=== PATIENT | female | born 1965 | race Two or more races ===

== ENCOUNTER 2019-04-03 19:40 | Emergency (ER) | payer MEDICAID, MEDICARE, OTHER ==
[~2019-04-03] VITALS: Ht 154.9 cm; Wt 48.1 kg
[~2019-04-03 19:40] MED LIST: AMBIEN10 MG ORAL; CLONAZEPAM1 MG PO; CLONAZEPAM2 M1 PO; CYMBALTA30 MG ORAL; FUROSEMIDE20 M1 ORAL; KLONOPIN1 MG ORAL; LITHIUM CARBON300 MG ORAL; MULTIVITAMINS1 EAC2 ORAL; NORCO 10/3251 EA ORAL; PERCOCET 10-321 EACH ORAL; REMERON30 MG ORAL; RISPERDAL2 MG ORAL; TEMAZEPAM30 MG ORAL; VITAMIN C500 M1 ORAL; WELLBUTRIN100 MG ORAL
[2019-04-03] MEDS ORDERED: LYRICA75 M1 ORAL (19:48)
[2019-04-03] MEDS ORDERED: Hydromorphone 0.5mg/0.5ml inj IVP ONE (20:00)
--- NOTE | 2019-04-03 20:03 | Emergency Room Report ---
History of Present Illness General Chief Complaint: Abdominal Pain Source: Patient Present Illness HPI The patient presents via ambulation for left upper quadrant pain. She has pain at the site where the J-tube was removed. She was seen at [facility] March 30 and a CAT scan was done. They initially said they were going to perform surgery but then they change their minds. They did not treat her with outpatient analgesia. She has been nauseated and vomiting. She has been able to move her bowels without diarrhea but has constipation. She denies passing any blood per rectum, hematochezia, melena or blood mixed in the stool. She denies any dysuria. She states the pain is severe at this time. She rates the pain 10/10 sharp and more in the area where the J-tube was removed. Nonradiating but constant. She is somewhat depressed about the lack of pain control. She denies suicidal or homicidal ideation. Morphine pump No fevers, chills, chest pain, palpitations, shortness of breath, visual changes , headache. Allergies: Coded Allergies: FISH PRODUCT DERIVATIVES (Verified Allergy, Unknown, 12/11/11) IBUPROFEN (Verified Adverse Reaction, Mild, GI BLEED, 11/21/11) Patient History Past Medical History: see triage record Past Surgical History: other - J-tube post removal, gastric bypass Social History: Reports: smoking Social History Narrative From home Reviewed Nursing Documentation: PMH: Agreed; PSxH: Agreed Nursing Documentation-PMH Past Medical History: No History, Except For Hx Cardiac Problems: No Hx Asthma: Yes - due to allergy. Hx Cancer: No Hx Gastrointestinal Problems: Yes - UMBILICAL HERNIA Hx Neurological Problems: No Hx Cerebrovascular Accident: Yes - 2011 Review of Systems All Other Systems: negative except mentioned in HPI Physical Exam Vital Signs Date Time Temp Pulse Resp B/P (MAP) Pulse Ox O2 Delivery O2 Flow Rate FiO2 04/03/19 19:42 98.2 63 16 102/64 (77) 97 Room Air Sp02 EP Interpretation: reviewed, normal General Appearance: no apparent distress, alert, GCS 15, thin, Chronically Ill Head: normocephalic Eyes: bilateral eye normal inspection, bilateral eye PERRL, bilateral eye EOMI ENT: moist mucus membranes Neck: supple Respiratory: lungs clear, normal breath sounds Cardiovascular #1: regular rate, rhythm Cardiovascular #2: 2+ radial (R) Gastrointestinal: normal inspection, normal bowel sounds, no mass, non- distended, no guarding, no rebound, tenderness - J-tube site Genitourinary: no CVA tenderness Musculoskeletal: back normal, gait/station normal, normal range of motion Neurologic: alert, oriented x3, grossly normal Psychiatric: depressed affect Skin: other - J-tube site without induration or erythema. No drainage Medical Decision Making Diagnostic Impression: Primary Impression: Abdominal pain Qualified Codes: R10.12 - Left upper quadrant pain Additional Impressions: Constipation Qualified Codes: K59.00 - Constipation, unspecified Opiate dependence Qualified Codes: F11.288 - Opioid dependence with other opioid-induced disorder History of jejunostomy tube placement ER Course Patient presents with abdominal pain at the J-tube site. Differential includes abdominal wall infection, pain seeking behavior, electrolyte imbalance, diverticulitis, dehydration, gastroenteritis, pancreatitis amongst others. Evaluation will be with EKG, chest x-ray, abdominal film and labs. The patient will be ordered IV hydration and analgesia. White count normal. CMP unremarkable. Abdominal film with multiple surgical clips and morphine pump. Chest x-ray unremarkable. Patient improved with treatment. Lido Derm patch applied. She already has significant analgesics at home. It was stressed that she needs to follow-up with her gastrointestinal specialist or private doctor. She has an appointment tomorrow with her GI specialist. Pain is improved. She requests more analgesic. Percocet is given p.o. Patient stable for outpatient observation and treatment. Laboratory Tests Test 04/03/19 20:25 04/03/19 20:35 White Blood Count 6.6 K/UL (4.8-10.8) Red Blood Count 3.53 M/UL (4.20-5.40) L Hemoglobin 10.6 G/DL (12.0-16.0) L Hematocrit 32.9 % (37.0-47.0) L Mean Corpuscular Volume 93 FL (80-99) Mean Corpuscular Hemoglobin 30.0 PG (27.0-31.0) Mean Corpuscular Hemoglobin Concent 32.1 G/DL (32.0-36.0) Red Cell Distribution Width 13.4 % (11.6-14.8) Platelet Count 219 K/UL (150-450) Mean Platelet Volume 7.7 FL (6.5-10.1) Neutrophils (%) (Auto) % (45.0-75.0) Lymphocytes (%) (Auto) % (20.0-45.0) Monocytes (%) (Auto) % (1.0-10.0) Eosinophils (%) (Auto) % (0.0-3.0) Basophils (%) (Auto) % (0.0-2.0) Differential Total Cells Counted 100 Neutrophils % (Manual) 27 % (45-75) L Lymphocytes % (Manual) 61 % (20-45) H Monocytes % (Manual) 8 % (1-10) Eosinophils % (Manual) 4 % (0-3) H Basophils % (Manual) 0 % (0-2) Band Neutrophils 0 % (0-8) Platelet Estimate Adequate Platelet Morphology Normal Red Blood Cell Morphology Normal Prothrombin Time 10.1 SEC (9.30-11.50) Prothrombin Time INR 0.9 (0.9-1.1) PTT 29 SEC (23-33) Sodium Level 141 MMOL/L (136-145) Potassium Level 3.8 MMOL/L (3.5-5.1) Chloride Level 108 MMOL/L (98-107) H Carbon Dioxide Level 28 MMOL/L (21-32) Anion Gap 5 mmol/L (5-15) Blood Urea Nitrogen 16 mg/dL (7-18) Creatinine 1.0 MG/DL (0.55-1.30) Estimate Glomerular Filtration Rate 58.0 mL/min (>60) Glucose Level 97 MG/DL (74-106) Calcium Level 8.6 MG/DL (8.5-10.1) Total Bilirubin 0.2 MG/DL (0.2-1.0) Aspartate Amino Transferase (AST) 19 U/L (15-37) Alanine Aminotransferase (ALT) 12 U/L (12-78) Alkaline Phosphatase 87 U/L (46-116) Troponin I 0.005 ng/mL (0.000-0.056) Total Protein 5.4 G/DL (6.4-8.2) L Albumin 2.3 G/DL (3.4-5.0) L Globulin 3.1 g/dL Albumin/Globulin Ratio 0.7 (1.0-2.7) L Lipase 86 U/L (73-393) Urine Color Yellow Urine Appearance Clear Urine pH 5 (4.5-8.0) Urine Specific [place] 1.020 (1.005-1.035) Urine Protein Negative (NEGATIVE) Urine Glucose (UA) Negative (NEGATIVE) Urine Ketones Negative (NEGATIVE) Urine Blood Negative (NEGATIVE) Urine Nitrite Negative (NEGATIVE) Urine Bilirubin Negative (NEGATIVE) Urine Urobilinogen Normal MG/DL (0.0-1.0) Urine Leukocyte Esterase 1+ (NEGATIVE) H Urine RBC 0-2 /HPF (0 - 2) Urine WBC 0-2 /HPF (0 - 2) Urine Squamous Epithelial Cells Occasional /LPF Urine Bacteria None /HPF (NONE) EKG Diagnostic Results Rate: bradycardiac Rhythm: NSR ST Segments: no acute changes Rhythm Strip Diag. Results EP Interpretation: yes Rhythm: no PVC's, no ectopy, other - luba Chest X-Ray Diagnostic Results Chest X-Ray Diagnostic Results : Chest X-Ray Ordered: Yes # of Views/Limited/Complete: 1 View Indication: Chest Pain Interpretation: no consolidation, no effusion, no pneumothorax Impression: No acute disease Electronically Signed by: Electronically signed by Guilherme Leo MD Other X-Ray Diagnostic Results Other X-Ray Diagnostic Results : X-Ray ordered: Abdomen # of Views/Limited Vs Complete: 1 View Indication: Pain EP Interpretation: Yes Interpretation: nonspecific bowel gas, no sbo, other - clips, morphine pump , inc stool Impression: Other Electronically Signed by: Electronically signed by Guilherme Leo MD Last Vital Signs Date Time Temp Pulse Resp B/P (MAP) Pulse Ox O2 Delivery O2 Flow Rate FiO2 04/03/19 23:27 98.2 89 16 102/64 97 Room Air Status: improved Disposition: HOME, SELF-CARE Condition: Improved Scripts Promethazine Hcl* (PHENERGAN*) 25 Mg Tablet 25 MG ORAL Q6H PRN for Nausea & Vomiting, #10 TAB Prov: Guilherme Leo MD 04/03/19 Lidocaine (Lidoderm) 1 Each Adh..patch 1 PATCH TOPIC DAILY, #7 PATCH 0 Refills Patch(es) may remain in place for up to 12 hours in any 24-hour period. Prov: Guilherme Leo MD 04/03/19 Lactulose (LACTULOSE*) 20 Gm/30 Ml Solution 30 ML ORAL BID PRN for constipation, #240 ML 0 Refills Prov: Guilherme Leo MD 04/03/19 Guilherme Leo MD Apr 03, 2019 20:03
[2019-04-03 20:39] VITALS: BP 102/64
--- NOTE | 2019-04-03 20:42 | NUR ---
ED Nurse Note: Patient presents as walkin with complaints of left abdominal pain x 3 days, 10/10 pain level and used vicodin with no relief.
[2019-04-03 20:43] LABS: HEMATOCRIT 32.9 % (37.0-47.0); HEMOGLOBIN 10.6 G/DL (12.0-16.0); MEAN CORPUSCULAR VOLUME 93 FL (80-99); PLATELET COUNT 219 K/UL (150-450); RED BLOOD COUNT 3.53 M/UL (4.20-5.40); RED CELL DISTRIBUTION WIDTH 13.4 % (11.6-14.8); WHITE BLOOD COUNT 6.6 K/UL (4.8-10.8)
[2019-04-03 20:45] LABS: APPEARANCE,URINE CLEAR; BILIRUBIN, URINE NEGATIVE (NEGATIVE); GLUCOSE, URINE (UA) NEGATIVE (NEGATIVE); KETONES,URINE NEGATIVE (NEGATIVE); LEUKOCYTE ESTERASE ,URINE 1+ (NEGATIVE); NITRITE,URINE NEGATIVE (NEGATIVE); PH,URINE 5 (4.5-8.0); PROTEIN,URINE NEGATIVE (NEGATIVE); UROBILINOGEN,URINE NORMAL MG/DL (0.0-1.0)
[2019-04-03 20:49] LABS: COLOR,URINE YELLOW
[2019-04-03 20:51] LABS: INR 0.9 (0.9-1.1)
[2019-04-03 20:52] LABS: ANION GAP 5 mmol/L (5-15); BLOOD UREA NITROGEN 16 mg/dL (7-18); CALCIUM 8.6 MG/DL (8.5-10.1); CARBON DIOXIDE 28 MMOL/L (21-32); CHLORIDE 108 MMOL/L (98-107); POTASSIUM 3.8 MMOL/L (3.5-5.1); SODIUM 141 MMOL/L (136-145)
[2019-04-03 20:56] LABS: ALANINE AMINOTRANSFERASE 12 U/L (12-78); ALBUMIN 2.3 G/DL (3.4-5.0); ALBUMIN/GLOBULIN RATIO 0.7 (1.0-2.7); ALKALINE PHOSPHATASE 87 U/L (46-116); ASPARTATE AMINO TRANSFERASE 19 U/L (15-37); BILIRUBIN,TOTAL 0.2 MG/DL (0.2-1.0)
--- NOTE | 2019-04-03 21:42 | NUR ---
ED Nurse Note: Patient resting with no complaints.
--- NOTE | 2019-04-03 22:43 | NUR ---
ED Nurse Note: Patient resting with no s/s of acute distress.
[2019-04-03] MEDS ORDERED: LIDODERM700 M1 TOPIC (22:58)
[2019-04-03] MEDS ORDERED: LACTULOSE20 GM/301 ORAL (22:58)
[2019-04-03] MEDS ORDERED: PROMETHAZINE HC25 M1 ORAL (23:08)
[2019-04-03] MEDS ORDERED: oxyCODONE HCL/Acetaminophen 5/325mg ORAL ONE (23:15)
[2019-04-03 23:27] VITALS: BP 102/64
--- NOTE | 2019-04-03 23:27 | NUR ---
ED Nurse Note: Patient cleared for discharge. Patietn medication prior to deapture, aunt will pick her up. lidocaine patch applied to left abdomen per ERMd. Patient ID band removed, Patient IV removed. Patient verbalized understanding of discharge instructions. Patient departed with all belongings.
--- NOTE | 2019-04-04 13:05 | Diagnostic Imaging Report ---
Indication: Chest pain Technique: One view of the chest Comparison: 10/09/2014 Findings: Lungs and pleural spaces are clear. Heart size is normal. No significant interim change Impression: No acute process
--- NOTE | 2019-04-04 13:07 | Diagnostic Imaging Report ---
Indication: Abdominal pain Technique: Supine view of the abdomen Comparison: none Findings: A power pack, presumed pain pump overlies the right lower quadrant. Numerous surgical clips are seen scattered throughout the abdomen. There is moderate retained colonic stool. There is evidence of prior gastric bypass surgery. No gaseous distention of large or small bowel. No masses or unusual calcifications. Impression: Postsurgical changes, as noted Possible mild constipation. Correlate with clinical history No acute process
== END 2019-04-03 23:27 | disposition home or self-care (01) ==
LOC: EMR 20:26
DX: R10.12 Left upper quadrant pain (principal); K59.00 Constipation, unspecified; F11.288 Opioid dependence with other opioid-induced disorder; Z93.4 Other artificial openings of gastrointestinal tract status; Z88.6 Allergy status to analgesic agent; Z91.013 Allergy to seafood; F17.200 Nicotine dependence, unspecified, uncomplicated; Z86.73 Personal history of transient ischemic attack (TIA), and cerebral infarction without residual deficits; Z98.84 Bariatric surgery status; R00.1 Bradycardia, unspecified
CPT/HCPCS: 36415; 71045; 74018; 80053; 81003; 83690; 84484; 85007; 85025; 85610; 85730; 93005; 96361; 96374; 96375; 99284; J1170; J2405

== ENCOUNTER 2019-08-05 10:04 | Outpatient (CLI) | payer MEDICARE, MEDICAID ==
[~2019-08-05 10:04] MED LIST changes: +LACTULOSE20 GM/301 ORAL; +LIDODERM700 M1 TOPIC; +LYRICA75 M1 ORAL; +PROMETHAZINE HC25 M1 ORAL
[2019-08-05 10:27] LABS: APPEARANCE,URINE CLEAR; BILIRUBIN, URINE NEGATIVE (NEGATIVE); GLUCOSE, URINE (UA) NEGATIVE (NEGATIVE); KETONES,URINE NEGATIVE (NEGATIVE); LEUKOCYTE ESTERASE ,URINE 3+ (NEGATIVE); NITRITE,URINE NEGATIVE (NEGATIVE); PH,URINE 5 (4.5-8.0); PROTEIN,URINE NEGATIVE (NEGATIVE); UROBILINOGEN,URINE NORMAL MG/DL (0.0-1.0)
[2019-08-05 10:36] LABS: COLOR,URINE YELLOW
[2019-08-05 10:39] LABS: BASOPHILS % (AUTO) 1.5 % (0.0-2.0); EOSINOPHILS % (AUTO) 4.2 % (0.0-3.0); HEMATOCRIT 36.3 % (37.0-47.0); LYMPHOCYTES % (AUTO) 46.8 % (20.0-45.0); MEAN CORPUSCULAR VOLUME 89 FL (80-99); MONOCYTES % (AUTO) 5.7 % (1.0-10.0); NEUTROPHILS % (AUTO) 41.8 % (45.0-75.0); PLATELET COUNT 255 K/UL (150-450); RED CELL DISTRIBUTION WIDTH 12.6 % (11.6-14.8); WHITE BLOOD COUNT 4.2 K/UL (4.8-10.8)
[2019-08-05 10:44] LABS: INR 0.9 (0.9-1.1)
[2019-08-05 10:49] LABS: ANION GAP 0 mmol/L (5-15); BLOOD UREA NITROGEN 11 mg/dL (7-18); CALCIUM 8.7 MG/DL (8.5-10.1); CARBON DIOXIDE 34 MMOL/L (21-32); CHLORIDE 103 MMOL/L (98-107); CREATININE 1.1 MG/DL (0.55-1.30); POTASSIUM 4.1 MMOL/L (3.5-5.1); SODIUM 137 MMOL/L (136-145)
== END 2019-08-05 12:04 | disposition home or self-care (01) ==
LOC: RAD 10:04
DX: Z01.818 Encounter for other preprocedural examination (principal); M19.90 Unspecified osteoarthritis, unspecified site; R63.4 Abnormal weight loss; I95.9 Hypotension, unspecified
CPT/HCPCS: 36415; 80048; 81001; 85025; 85610; 85730; 87081; 93005